=== PATIENT | male | born 1975 | race African-American/Black ===

== ENCOUNTER 2017-05-05 11:11 | Emergency (ER) | payer OTHER ==
[2017-05-05 11:35] VITALS: BP 137/81
[2017-05-05] MEDS ORDERED: ONDANSETRON 4 MG TAB.RAPDIS PO ONE (11:43)
[2017-05-05] MEDS ORDERED: MORPHINE SULFATE 10 MG/ML INJ IM ONE (11:43)
[2017-05-05] MEDS ORDERED: PREDNISONE 20 MG TABLET PO ONE (11:43)
[2017-05-05] MEDS ORDERED: KETOROLAC TROMETHAMINE INJ/PF 30 MG/1 ML SDV IV ONE (12:33)
--- NOTE | 2017-05-05 14:35 | RADIOLOGY REPORT (SQ) ---
EXAM DESCRIPTION: L SPINE WHOLE COMPLETED DATE/TIME: 05/05/2017 2:22 pm REASON FOR STUDY: back injury COMPARISON: None. NUMBER OF VIEWS: Five views including obliques. TECHNIQUE: AP, lateral, oblique, and sacral radiographic images acquired of the lumbar spine. LIMITATIONS: None. FINDINGS: MINERALIZATION: Normal. SEGMENTATION: Normal. No transitional anatomy. ALIGNMENT: Normal. VERTEBRAE: Maintained height. No fracture or worrisome bone lesion. DISCS: Preserved height. No significant osteophytes or end plate irregularity. POSTERIOR ELEMENTS: Pedicles and facets are intact. No pars defect or posterior arch defects. HARDWARE: None in the spine. PARASPINAL SOFT TISSUES: Normal. PELVIS: Intact as visualized. No fractures or worrisome bone lesions. SI joints intact. OTHER: No other significant finding. IMPRESSION: NORMAL 5 VIEW LUMBAR SPINE. TECHNICAL DOCUMENTATION: JOB ID: [id number] [employer]- All Rights Reserved
[2017-05-05] MEDS ORDERED: MORPHINE SULFATE 10 MG/ML INJ IV ONE (14:43)
[2017-05-05] MEDS ORDERED: DIAZEPAM 2 MG TABLET PO ONE (15:11)
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
== END 2017-05-05 15:57 | disposition home or self-care (01) ==
LOC: ER 11:11
DX: S39.92XA Unspecified injury of lower back, initial encounter (principal); Y04.8XXA Assault by other bodily force, initial encounter; Y93.89 Activity, other specified; Y99.0 Civilian activity done for income or pay; M25.9 Joint disorder, unspecified; I10 Essential (primary) hypertension
CPT/HCPCS: 99284; 96372; 96374; 96375; 72110; J3490; S0119; J1885; J2270; J7512